=== PATIENT | male | born 1985 | race Hispanic/Latino ===

== ENCOUNTER 2017-10-08 10:03 | Emergency (ER) | payer OTHER ==
[2017-10-08] MEDS ORDERED: Fentanyl 100 MCG/2 ML VIAL ONE (10:38)
[2017-10-08] MEDS ORDERED: Cyclobenzaprine 10 MG TAB ONE (10:39)
[2017-10-08] MEDS ORDERED: predniSONE 20 MG TAB ONE (10:40)
== END 2017-10-08 11:10 | disposition home or self-care (01) ==
LOC: SCSER 10:03
DX: M51.9 Unspecified thoracic, thoracolumbar and lumbosacral intervertebral disc disorder (principal)
CPT/HCPCS: 96372; J3010; J7506

== ENCOUNTER 2017-10-12 18:40 | Outpatient (CLI) | payer OTHER ==
--- NOTE | 2017-10-12 20:59 | RAD ---
FOUR VIEWS LUMBAR SPINE: Date: 10-12-17 History: Low back pain. Patient injured back 7 years ago in the [place]. Pain in left buttock and thi gh occasionally. FINDINGS: There are five non-rib bearing lumbar type vertebral bodies. The vertebral body heights are within no rmal limits. There is mild narrowing of the L5-S1 intervertebral disc space. No fracture or subluxati on is seen involving the lumbar spine. No abnormal translation of motion is seen between the flexion and extension views of the lumbar spine. IMPRESSION: No acute osseous abnormality of the lumbar spine. If patient has neurological deficit or persistent p ain, MRI lumbar spine may be helpful for further evaluation. POS: [facility]
== END 2017-10-12 18:41 | disposition home or self-care (01) ==
LOC: SCSRAD 18:40
PROVIDERS: ATTEND Family Medicine
DX: M54.5 Low back pain (principal)
CPT/HCPCS: 72120

== ENCOUNTER 2018-03-11 02:39 | Emergency (ER) | payer OTHER ==
[2018-03-11 03:01] LABS: Bilirubin Negative (Negative); Blood, Urine Negative (Negative); Clarity Clear (Clear); Glucose, Urine (Dipstick) Negative (Negative); Leukocyte Negative (Negative); Nitrite Negative (Negative); Protein, Urine (Dipstick) Negative (Neg-Trace); Urobilinogen 0.2 mg/dL (0.2-1.0); pH, Urine 5.5 (5.0-9.0)
[2018-03-11 03:02] LABS: #Basophils 0.1 thou/uL (0.0-0.2); #Eosinphils 0.1 thou/uL (0.0-0.7); #Lymphocytes 2.5 thou/uL (1.20-3.40); #Monocytes 0.8 thou/uL (0.11-0.59); %Basophils 0.9 % (0.0-1.0); %Eosinophils 0.8 % (0.0-10.0); %Lymphocytes 26.4 % (21.0-51.0); %Monocytes 8.7 % (0.0-10.0); %Neutrophils 63.2 % (42.0-75.0); Hemoglobin 15.1 g/dL (14.0-18.0); Mean Corpuscular HGB CONC 34.2 g/dL (32.0-36.0); Mean Corpuscular Hemoglobin 29.8 pg (27.0-31.0); Mean Corpuscular Volume 87.1 fL (78.0-98.0); Mean Platelet Volume 7.3 fL (7.4-10.4); Platelet Count 316 thou/uL (130-400); RBC Distribution Width 11.6 % (11.5-14.5); Red Blood Cell (RBC) Count 5.05 mill/uL (4.70-6.10); Specific Gravity, Urine 1.028 (1.002-1.036); White Blood Cell (WBC) Count 9.5 thou/uL (4.8-10.8)
[2018-03-11] MEDS ORDERED: Fentanyl 100 MCG/2 ML VIAL ONE (03:05)
[2018-03-11] MEDS ORDERED: Ondansetron HCl/PF 4 MG/2 ML Vial ONE (03:07)
[2018-03-11 03:14] LABS: ALT (SGPT) 21 U/L (8-55); AST (SGOT) 23 U/L (5-34); Albumin 4.6 g/dL (3.5-5.0); Alkaline Phosphatase 78 U/L (40-150); Anion Gap 13 mmol/L (10-20); BUN (Urea Nitrogen) 24 mg/dL (8.9-20.6); Bilirubin, Total 0.3 mg/dL (0.2-1.2); Calc. Creatinine Clearance 0 mL/min (70-130); Calcium 9.6 mg/dL (7.8-10.44); Carbon Dioxide 24 mmol/L (22-29); Chloride 106 mmol/L (98-107); Estimated GFR-MDRD 87; Globulin 3.1 g/dL (2.4-3.5); Glucose 94 mg/dL (70-105); Lipase 11 U/L (8-78); Potassium 4.2 mmol/L (3.5-5.1); Protein, Total 7.7 g/dL (6.0-8.3); Sodium 139 mmol/L (136-145)
[2018-03-11] MEDS ORDERED: Ketorolac Tromethamine 30 MG/ML VIAL ONE (03:45)
--- NOTE | 2018-03-11 14:22 | CT ---
PRELIMINARY REPORT/[facility]/EMERGENTY AFTER-HOURS PROCEDURE CT Abdomen and Pelvis With Intravenous Contrast CLINICAL HISTORY: 33 years old, male; Pain; Abdominal pain; Epigastric; Patient HX: Epigastric abd pain that started at 1900 last night an hour after eating chipotle. Patient reports episodes of diarrhea with nausea. Rep orts 1 episode of vomiting. Denies fever. TECHNIQUE: Axial computed tomography images of the abdomen and pelvis with intravenous contrast. Coronal reformatted images were created and reviewed. CONTRAST: 85 mL of [id number] administered intravenously. COMPARISON: No relevant prior studies available. FINDINGS: Lung bases: Unremarkable. No mass. No consolidation. ABDOMEN: Liver: Unremarkable. Gallbladder and bile ducts: Unremarkable Pancreas: Unremarkable. Spleen: Unremarkable. Adrenals: Unremarkable. Kidneys and ureters: Unremarkable. Stomach and bowel: Stomach is decompressed. Stool throughout colon. PELVIS: Appendix: No findings to suggest acute appendicitis. Bladder: Mild diffuse urinary bladder wall thickening. Reproductive: Unremarkable. ABDOMEN and PELVIS: Intraperitoneal space: No free air. No significant fluid collection. Bones/joints: No acute fracture. No dislocation. Soft tissues: Unremarkable. Vasculature: Unremarkable. No abdominal aortic aneurysm. Lymph nodes: Scattered non specific subcentimeter mesenteric lymph nodes. IMPRESSION: Mild diffuse urinary bladder wall thickening which maybe due to under distention, however cystitis is not completely excluded. Correlate clinically. Thank you for allowing us to participate in the care of your patient. Dictated and Authenticated by: Oscar Dixon MD 03/11/2018 4:36 AM Central Time ([place] & [place]) ABDOMEN AND PELVIS CT SCAN WITH IV CONTRAST: EMERGENT AFTER HOURS EXAM: FINAL REPORT: 03/11/2018 3:36 a.m. FINDINGS: Borderline urinary bladder wall thickening, which may well be related to under-distention. No renal calculus or obstruction. Normal appearing appendix. No evidence for other significant acute proc ess. I agree with [facility]. POS: [facility]
== END 2018-03-11 04:50 | disposition home or self-care (01) ==
LOC: SCSER 02:39
DX: R10.9 Unspecified abdominal pain (principal); R19.7 Diarrhea, unspecified
CPT/HCPCS: 74177; 80053; 81003; 83690; 85025; 96361; 96374; 96375; J1885; J2405; J3010